=== PATIENT | female | born 1965 | race Caucasian/White ===

== ENCOUNTER → 2020-03-14 | Day surgery (SDC) | payer BC ==
[~2020-03-14] MED LIST: Ketamine 200 MG/20 ML MDV IV ONE; Lactated Ringers 1,000 ML IV SCH; Phenylephrine 1% 10 MG/ML SDV IV ONE; Propofol 200 MG/20 ML SDV IV ONE; fentaNYL 100 MCG/2 ML SDV IV ONE
--- NOTE | 2020-03-14 15:26 | OR ---
DATE OF OPERATION: 03/14/2020 PREOPERATIVE DIAGNOSIS: HISTORY OF POLYPS. POSTOPERATIVE DIAGNOSIS: HISTORY OF POLYPS. SURGEON: Roger Hough MD PROCEDURE: FULL-LENGTH COLONOSCOPY. ANESTHESIA: MAC. COMPLICATIONS: None. SPECIMEN: None. FINDINGS: 1. Full-length colonoscopy. 2. Moderate sigmoid diverticulosis. RECOMMENDATIONS: Followup colonoscopy in 10 years. INDICATIONS: The patient has a prior history of colonoscopy showing 1 small polyp removed in the rectal vault. She is slightly overdue for a routine followup in that regard. DESCRIPTION OF PROCEDURE: The patient was prepped and draped, placed in the left lateral decubitus position. A lubricated Olympus colonoscope was inserted and easily advanced to the cecum. Direct visualization of the ileocecal valve and appendiceal orifice was accomplished. The bowel prep was fine. Upon withdrawal of the scope, the right transverse and descending colons were benign. The patient had significant diverticular disease throughout most of the left colon and in the rectosigmoid junction, moderate in severity. No acute inflammatory changes were seen. Throughout the entire colon I could find no polyps, masses, ulceration, or bleeding sites. No vascular abnormalities or signs of colitis. The rectal vault had a lot of stool. I was able to retroflex and the perianal region looked benign. I irrigated as well as possible, but patient did have large volume stool present. What I could see was completely normal in the vault as well. Air was then suctioned. The scope was removed without complication. KENDALL/BA /[id number]
== END ==
LOC: CC.SDS 06:30
PROVIDERS: ATTEND Family Medicine
DX: Z12.11 Encounter for screening for malignant neoplasm of colon (principal); K57.30 Diverticulosis of large intestine without perforation or abscess without bleeding; Z86.010 Personal history of colon polyps
CPT/HCPCS: J2370; J2704; J3010; J7120